=== PATIENT | male | born 1970 | race Caucasian/White ===

== ENCOUNTER → 2017-09-11 | Outpatient (CLI) | payer BC, OTHER | END | disposition home or self-care (01) | LOC: GMAB 14:27 | PROVIDERS: ATTEND Family Medicine | DX: L03.011 Cellulitis of right finger (principal) ==

== ENCOUNTER → 2020-10-06 | Outpatient (CLI) | payer OTHER | LOC: GMAL 10:42 | PROVIDERS: ATTEND Family Medicine | DX: E53.8 Deficiency of other specified B group vitamins (principal); E03.9 Hypothyroidism, unspecified; E55.9 Vitamin D deficiency, unspecified; I10 Essential (primary) hypertension; E78.2 Mixed hyperlipidemia ==